=== PATIENT | female | born 2000 | race Caucasian/White ===

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

== ENCOUNTER 2021-03-24 09:39 | Emergency (ER) | payer BC ==
[~2021-03-24] VITALS: Ht 162.6 cm; Wt 106.4 kg
[2021-03-24 10:20] VITALS: TEMP 99
[2021-03-24 10:42] LABS: COLLECTION METHOD CLEAN CATCH
[2021-03-24 10:45] LABS: BASO % 0.4 % (0.0-2.0); GRAN # 2.3 K/mm3 (1.4-6.5); GRAN % 45.4 % (42.2-75.2); HEMATOCRIT 47.2 % (37.0-47.0); HEMOGLOBIN 15.2 g/dl (12.5-16.0); LYMPH # 2.3 K/mm3 (1.2-3.4); LYMPH % 45.5 % (20.0-51.0); MEAN CELL VOLUME 80 fl (80.0-100.0); MEAN CORPUSCULAR HEMOGLOBIN 26 pg (27.0-31.0); MEAN CORPUSCULAR HGB CONC 32 g/dl (33.0-37.0); MONO # 0.4 K/mm3 (0.1-0.6); MONO % 8.7 % (1.7-9.3); PLATELET COUNT 173 K/mm3 (130-400); REDCELL DISTRIBUTION WIDTH-CV 14.2 % (11.5-14.5)
[2021-03-24 10:56] LABS: MUCOUS Present (NOT PRESENT); PH 5 (5-8); URINE APPEARANCE Cloudy (CLEAR/HAZY); URINE BACTERIA Rare (NONE SEEN); URINE BILIRUBIN Negative (NEGATIVE); URINE BLOOD Negative (NEGATIVE); URINE COLOR Amber (YELLOW); URINE GLUCOSE Negative (NEGATIVE); URINE KETONE Negative (NEGATIVE); URINE LEUKOCYTE ESTERASE 1+ (NEGATIVE); URINE NITRATE Negative (NEGATIVE); URINE PROTEIN(semi-quant) 1+ (NEGATIVE); URINE UROBILINOGEN >=4.0 mg/dL (NEGATIVE)
[2021-03-24 11:03] LABS: ALBUMIN 3.8 gm/dL (3.5-5.0); CALCIUM 9.3 mg/dL (8.4-10.2); CREATININE, serum 0.89 mg/dL (0.57-1.11); TOTAL PROTEIN 8.1 gm/dL (6.2-8.1)
[2021-03-24] MEDS ORDERED: CEFTIN500 MG PO (11:26)
[2021-03-24 12:08] VITALS: BP 124/89; PULSE 88
== END 2021-03-24 12:08 | disposition home or self-care (01) ==
LOC: COL.ER 09:39
PROVIDERS: Physician Assistant
DX: U07.1 COVID-19 (principal); N39.0 Urinary tract infection, site not specified; F17.290 Nicotine dependence, other tobacco product, uncomplicated; Z88.0 Allergy status to penicillin; Z73.0 Burn-out
CPT/HCPCS: J0696; J2405; J7030

== ENCOUNTER 2022-06-13 10:59 | Outpatient (CLI) | payer BC, MEDICAID ==
[~2022-06-13] VITALS: Ht 162.6 cm; Wt 130.0 kg
[~2022-06-13 10:59] MED LIST changes: +CEFTIN500 MG PO
[2022-06-13 11:40] VITALS: BP 159/84; PULSE 77; TEMP 98.3
--- NOTE | 2022-06-13 11:45 | NUR ---
PATIENT HERE WITH COMPLAINTS OF REDNESS, FEELING HOT, AND HIGH BP. PATIENT TO ROOM IN GOWN, MONITORS APPLIED, VITALS TAKEN, ORIGINAL BP OF 177/89, SLOWLY DECREASED PATIENT IN BED. SERIAL BPS TAKEN, PER PT REPORT SHE IS A PT OF DR ADAMES IN [place] AND SHE WAS RECENTLY CONSULTING [facility] FOR PRE-E. PER PTS REPORT BABY IS ALSO IUGR AND FAILED HER LAST BPP DUE TO "NOT MOVING AND NOT BREATHING ADEQUATELY". CAT 1 STRIP ON MONITOR. NO CTX NOTED. NO TEMPERATURE. PT DOES SEEM TO BE FLUSHED. PT REPORTS RECEIVING THE 1ST DOSE OF BETAMETHAZONE LAST WEEK AT HER [facility] APPOINTMENT. PT REPORTS WAKING UP THIS AM NOT FEELING WELL AND TAKING BP AT [facility] AND IT SAID THAT IT WAS 177/91. SHE CALLED [facility] AND THEY SAID TO GO TO THE NEAREST HOS[facility]. REPORT TO DR FLORENCE. ORDERS FOR LABS OF CBC CMP AND [place]/CR RATIO. WILL CONTINUE TO MONITOR
[2022-06-13 12:00] VITALS: BP 144/83; PULSE 78
[2022-06-13 12:30] VITALS: BP 141/79; PULSE 71
[2022-06-13 13:00] VITALS: BP 128/78; PULSE 80
[2022-06-13 13:11] LABS: HEMOGLOBIN 11.1 g/dl (12.5-16.0); MEAN CELL VOLUME 79 fl (80.0-100.0); MEAN CORPUSCULAR HEMOGLOBIN 25 pg (27-31); MEAN CORPUSCULAR HGB CONC 32 g/dl (33.0-37.0); MEAN PLATELET VOLUME 11.8 fl (7.4-10.4); RED BLOOD COUNT 4.41 M/mm3 (4.10-5.30)
[2022-06-13 13:15] LABS: HEMATOCRIT 34.7 % (37.0-47.0)
[2022-06-13 13:29] LABS: ALBUMIN 2.5 gm/dL (3.5-5.0); BILIRUBIN,TOTAL 0.4 mg/dL (0.2-1.2); CALCIUM 9.4 mg/dL (8.4-10.2); CREATININE, serum 0.66 mg/dL (0.57-1.11); POTASSIUM 4.3 mmol/L (3.5-4.5); TOTAL PROTEIN 6.4 gm/dL (6.2-8.1)
[2022-06-13 13:30] VITALS: BP 164/79; PULSE 75
[2022-06-13 13:49] LABS: BAND 13 % (0-10); LYMPHOCYTE 13 % (20.0-51.0); NEUTROPHILS 72 % (42.0-75.2); PLATELET ESTIMATE NORMAL (NORMAL)
[2022-06-13 13:50] LABS: PLATELET COUNT 256 K/mm3 (130-400)
[2022-06-13 14:06] VITALS: BP 154/89; PULSE 75
== END 2022-06-13 14:20 | disposition home or self-care (01) ==
LOC: LDRO 10:59
PROVIDERS: Obstetrics & Gynecology
DX: O16.9 Unspecified maternal hypertension, unspecified trimester (principal); Z3A.00 Weeks of gestation of pregnancy not specified